=== PATIENT | male | born 1965 | race Caucasian/White ===

== ENCOUNTER 2019-02-20 08:39 | Outpatient (REF) | payer BC, SELFPAY ==
[2019-02-20 13:00] LABS: ALT 47 U/L (16-63); AST 21 U/L (15-37); Albumin 3.8 g/dL (3.4-5.0); Alkaline Phosphatase 111 U/L (46-116); BUN 22 mg/dL (7-18); Bilirubin, Total 0.4 mg/dL (0.2-1.0); CREATININE 0.84 mg/dL (0.70-1.30); Calcium 8.7 mg/dL (8.5-10.1); Chloride 102 mmol/L (98-107); Cholesterol 244 mg/dL (50-200); Glucose 145 mg/dL (70-100); HDL Cholesterol 36 mg/dL (40-60); Potassium 4.6 mmol/L (3.5-5.1); Sodium 137 mmol/L (136-145); Total Protein 7.2 g/dL (6.4-8.2); Triglyceride 595 mg/dL (30-150)
[2019-02-20 13:19] LABS: LDL CHOLESTEROL 95 mg/dL (<100)
== END 2019-02-20 08:59 ==
LOC: NCHCN 08:39
PROVIDERS: PCP Nurse Practitioner Family; Visit Provider Nurse Practitioner Family
DX: Z00.00 Encounter for general adult medical examination without abnormal findings (principal); K76.0 Fatty (change of) liver, not elsewhere classified
CPT/HCPCS: 80053; 80061; 83721

== ENCOUNTER 2019-07-07 08:54 | Outpatient (REF) | payer BC, SELFPAY ==
[2019-07-07 13:37] LABS: Calculated LDL 122 mg/dL (<100); Cholesterol 235 mg/dL (<200); HDL Cholesterol 45 mg/dL (40-60); Triglyceride 341 mg/dL (<150)
== END 2019-07-07 09:14 ==
LOC: NCHCN 08:54
PROVIDERS: PCP Nurse Practitioner Family; Visit Provider Nurse Practitioner
DX: E78.5 Hyperlipidemia, unspecified (principal)
CPT/HCPCS: 80061

== ENCOUNTER 2020-06-22 09:28 | Emergency (ER) | payer BC, SELFPAY ==
[2020-06-22 09:34] VITALS: BP 145/96; PULSE 89; RESP 16; TEMP 36.6; O2SAT 99
--- NOTE | 2020-06-22 09:52 | DI.CT_ITS ---
EXAM: CT ABDOMEN PELVIS W CLINICAL HISTORY: lower abdominal pain. TECHNIQUE: Imaging Protocol: Axial computed tomography images with coronal and sagittal reformatted images were created and reviewed CONTRAST MATERIAL: Intravenous: Omnipaque 100cc Oral: None COMPARISON: CT ABD PELVIS WITH CONTRAST from 09/04/2011 FINDINGS: VISUALIZED LUNG BASES: No nodules nor pleural effusions evident. ABDOMEN: There is no ascites. LIVER: There are no obvious focal hepatic lesions evident . GALLBLADDER/BILIARY: No obvious gallbladder pathology. CBD is not dilated. PANCREAS: No evidence of pancreatic mass nor dilatation of the pancreatic duct. SPLEEN: Spleen is not enlarged. No obvious intrasplenic lesions. Splenic and portal veins are paten t. ADRENALS: There is a small nodule in the right adrenal gland which measures 11 x 12 millimeters. Carlton osite-left adrenal gland is unremarkable. KIDNEYS:There is a small cyst in the superior pole of the left kidney which measures 1.5 x 1.4 cm. N o solid renal masses seen. No calculi nor hydronephrosis. No solid renal masses. No calculi nor hy dronephrosis.. ABDOMINAL AORTA: Abdominal aorta is not enlarged and there is no ttahklwrlxikcii-cnux-jzmykn adenopat hy. ABDOMINAL WALL/GI: No evidence of significant anterior abdominal wall hernia. No bowel obstruction. PELVIS: GI: No evidence of appendicitis.There is mild diffuse thickening of the sigmoid wall noted. No evide nce of acute diverticulitis. LYMPH NODES: There is no intrapelvic nor inguinal adenopathy. REPRODUCTIVE: Prostate size upper normal URINARY BLADDER: No calculi nor obvious masses evident OSSEOUS: No significant osseous lesions. IMPRESSION: 1. Solitary small benign cyst in the left kidney noted. This has slightly increased in size from 201 2. There are no other significant focal renal findings. No hydronephrosis. 2. 11 x 12 millimeter nodule in the right adrenal gland incidentally noted. This is probably a benig n adenoma. Opposite-left adrenal gland is unremarkable. 3. Some diffuse thickening of the sigmoid wall is noted. No evidence of obvious acute diverticulitis . There is no appendicitis. 4. There is no ascites. RADIATION DOSE DELIVERED: 973.11mGy.cm Total DLP DATA REPOSITORY: All CT scans at this facility are submitted to the National Radiology Data Registry (NRDR) Dose Index Registry (DIR) with the [employer] (ACR). RADIATION OPTIMIZATION: All CT scans at this facility use at least one of these dose optimization te chniques: automated exposure control; mA and/or kV adjustment per patient size (includes targeted exa ms where dose is matched to clinical indication); or iterative reconstruction.
--- NOTE | 2020-06-22 09:54 | ED.GENADUL_ITS ---
Discharge Plan Disposition Patient Disposition: HOME Condition: Good Discharge Details Clinical Impression: Abdominal pain Primary Care Provider: Rianna Finley ED Provider: Danelle Morgan Home Meds and New Rx's Prescriptions: No Action No Known Home Meds RF: 0 Discharge Instructions Instructions: Abdominal Pain (ED) Additional Instructions: Follow-up with your primary care physician in 24 to 48 hours for reevaluation You may continue on your Metamucil Clear liquid diet recommended There is possible evidence of colitis, should he have persistent pain, I do recommend colonoscopy at the discretion of your provider You also have a nodule in your adrenal gland and on your kidney, I recommend following up with your doctor regarding these findings Ibuprofen and Tylenol as needed for discomfort Recheck with your primary care physician regarding your blood pressure and return earlier should you have fever, chills, worsening pain, or with any new or progressing symptoms Medical Decision Making CT showed evidence of some sigmoid colon thickening, patient's not having diarrhea although she has taken numerous laxatives but I suspect this is contributing to the abnormal CT read He is given referral for surgery we will follow up with his primary care physician in 24 to 48 hours and consume clear liquid diet for 48 hours Instructed to follow-up with his doctor regarding the kidney cyst and adrenal cyst No abdominal tenderness on reevaluation Diagnostic labs do not show significant pathology, mild leukocytosis Low threshold to return with no worsening complaints Discharged home in stable condition with stable vitals HPI This 54-year-old gentleman who is otherwise healthy presents with abdominal pain for the past 24 hours. He states he drove to [place] last week and drove back returning home yesterday. He states he did move his bowels and took suppositories and actually had numerous bowel movements overnight with mild improvement in symptoms. He states that that when he stands now he has dramatic worsening pain. He denies fever or chills. He denies prior history of similar pain in the past. He denies nausea or vomiting. He denies blood in stool. He denies cough, chest pain, shortness of breath, or any additional complaints at this time. Denies dysuria or frequency. General Date/Time Provider Initiated Documentation: 06/22/20 09:35 . Related Data Home Medications Medication Instructions Recorded Confirmed Unknown [No Known Home Meds] 07/29/16 07/29/16 Allergies Allergy/AdvReac Type Severity Reaction Status Date / Time amoxicillin Allergy Intermediate hives with Unverified 07/29/16 21:44 rash Penicillins Allergy Unknown pt unsure Unverified 07/29/16 21:44 of allergy General Stated Complaint: Abd Prob LIO: 3 Review of Systems Narrative: Review of systems negative x7 aside from where indicated in HPI, specifically narrow diarrhea, nausea, vomiting, dysuria PFSH Social History Smoking/Tobacco Use Status: Former Tobacco Use Smoking risk assessment performed?: Yes Alcohol Intake: current Alcohol Intake frequency: holidays/special occasions only Drug use: Never Do you feel safe at home: Yes Do you feel safe in your relationship?: Yes Exam Const General: healthy appearing Chest Chest: normal inspection of the chest Resp Effort & Inspection: normal respiratory effort Auscultation: clear to auscultation bilaterally Cardio Rate: regular rate Rhythm: regular rhythm GI Inspection: normal to inspection Other: No rebound or guarding, mild tenderness with palpation in bilateral lower quadrants Skin General skin exam: no rashes or lesions noted Neuro General: patient alert Course Vital Signs Vital signs: Vital Signs Temperature 36.6 C 06/22/20 09:34 Pulse 89 06/22/20 09:34 Respiratory Rate 16 06/22/20 09:34 Blood Pressure 145/96 H 06/22/20 09:34 Pulse Oximetry 99 06/22/20 09:34 Temperature 36.6 C 06/22/20 09:34 Temperature Source Skin 06/22/20 09:34 Pulse 89 06/22/20 09:34 Respiratory Rate 16 06/22/20 09:34 Respiratory Effort 06/22/20 09:38 Blood Pressure 145/96 H 06/22/20 09:34 Blood Pressure Position Sitting 06/22/20 09:34 Pulse Oximetry 99 06/22/20 09:34 Oxygen Delivery Method Room Air 06/22/20 09:34 Oxygen Flow Rate 0 06/22/20 09:34 Pain Level 8 06/22/20 09:34 Comment 06/22/20 09:34
[2020-06-22 10:12] LABS: Abs Immature Grans 0.05 10^3/uL (0.0-0.06); Absolute Basophil Count 0.07 10^3/uL (0.0-0.2); Absolute Eosinophil Count 0.17 10^3/uL (0.0-0.7); Absolute Lymphocyte Count 1.66 10^3/uL (1.2-3.4); Absolute Monocyte Count 0.88 10^3/uL (0.1-0.8); Basophils % 0.6; Eosinophils % 1.5; HCT 48.5 % (40.0-50.0); HGB 16.7 g/dL (13.5-17.5); Immature Grans % 0.4; Lymphocytes % 14.6; MCH 30.1 pg (27.0-33.0); MCHC 34.4 % (32.0-36.0); MCV 87.5 fL (80-95); MPV 10.9 fL (8.0-11.0); Monocytes % 7.7; Neutrophils % 75.2; Nucleated RBC 0 %; Platelet Count 258 10^3/uL (130-400); RBC 5.54 10^6/uL (4.36-5.78); RDW 11.7 % (11.8-14.1); RDW-SD 37.2 fL; WBC 11.37 10^3/uL (4.4-10.8)
[2020-06-22 10:13] LABS: Absolute Neutrophil Count 8.55 10^3/uL (1.2-6.7)
[2020-06-22 10:24] LABS: Lipase 60 U/L (73-393)
[2020-06-22 10:31] LABS: ALT 33 U/L (16-63); AST 10 U/L (15-37); Albumin 3.5 g/dL (3.4-5.0); Alkaline Phosphatase 107 U/L (46-116); Anion Gap 11.1 mmol/L (3-11); BUN 16 mg/dL (7-18); Bilirubin, Total 0.6 mg/dL (0.2-1.0); CO2 24.9 mmol/L (21.0-32.0); CREATININE 0.8 mg/dL (0.70-1.30); Calcium 9.1 mg/dL (8.5-10.1); Chloride 102 mmol/L (98-107); Glucose 134 mg/dL (74-106); Sodium 138 mmol/L (136-145); Total Protein 7.8 g/dL (6.4-8.2)
[2020-06-22 10:41] LABS: Bilirubin Negative (Negative); Blood Negative (Negative); Clarity Clear (Clear); Glucose Negative (Negative); Ketones Negative (Negative); Leukocyte Esterase Negative (Negative); Nitrite Negative (Negative); Specific Gravity >= 1.030 (1.005-1.025); Urobilinogen 0.2 EU/dL (Up TO 0.2); pH 5.5 (5-8)
[2020-06-22] MEDS: Omnipaque 350 MG/ML 100 ML BTL IV (10:54)
[2020-06-22 11:56] VITALS: BP 132/82; PULSE 81; RESP 16; TEMP 36.6; O2SAT 98
== END 2020-06-22 11:58 | disposition home or self-care (01) ==
PROVIDERS: Emergency Provider Physician Assistant; PCP Nurse Practitioner Family
DX: R10.9 Unspecified abdominal pain (principal); N28.1 Cyst of kidney, acquired; E27.8 Other specified disorders of adrenal gland
CPT/HCPCS: 80053; 83690; 99285; 74177; 81003; 85025; 99283; J3490

== ENCOUNTER 2020-07-04 18:46 | Outpatient (REF) | payer BC, SELFPAY ==
[2020-07-04 16:19] LABS: Hemoglobin A1C 6.3 % (<5.7)
[2020-07-04 16:22] LABS: Calculated LDL 138 mg/dL (<100); Cholesterol 232 mg/dL (<200); HDL Cholesterol 44 mg/dL (40-60); Triglyceride 253 mg/dL (<150)
== END 2020-07-04 18:47 | disposition home or self-care (01) ==
LOC: NCHCN 18:46
PROVIDERS: PCP Nurse Practitioner Family; Visit Provider Nurse Practitioner
DX: E78.5 Hyperlipidemia, unspecified (principal); R73.03 Prediabetes; E55.9 Vitamin D deficiency, unspecified
CPT/HCPCS: 80061; 82306; 83036

== ENCOUNTER 2020-07-06 01:25 | Outpatient (CLI) | payer BC, SELFPAY ==
--- NOTE | 2020-07-06 | DI.MRI_ITS ---
EXAM: MR LUMBAR SPINE WO CLINICAL HISTORY: BACK PAIN WITH RADICULOPATHY, M54.16. TECHNIQUE: Multiplanar multisequence MRI of the Lumbar spine was performed. COMPARISON: No exams were available for comparison FINDINGS: Bones: The last intervertebral disc space is designated the L5/S1 level for the numbering purpose of this examination. The vertebral body heights are well maintained. Alignment is satisfactory. Degene rative endplate signal changes are seen at L3-4, L4-L5 and L5-S1. Cord: The conus tip ends at the L1 level. It is of normal size and signal intensity. T12-L1: No disc herniations or bulges are present. No central spinal canal or neural foraminal stenos is. L1-2: No disc herniations or bulges are present. No central spinal canal or neural foraminal stenosis . L2-3: No disc herniations or bulges are present. No central spinal canal or neural foraminal stenosis . L3-4: There is a mild diffuse disc bulge. No significant central spinal canal stenosis is seen. The re is mild bilateral neural foraminal narrowing. L4-5: There is a diffuse disc bulge. There does appear to be a small disc herniation into the right neural foramen causing marked right neural foraminal stenosis. No significant central spinal canal s tenosis is seen. Mild narrowing of the left neural foramen is noted. L5-S1: There is a mild diffuse disc bulge. No significant central spinal canal stenosis. Mild hyper trophic changes are seen at the facet joints. Mild to moderate bilateral neural foraminal stenosis i s present. Soft tissues: The visualized SI joints and sacrum are well maintained. The paraspinal soft tissues ar e unremarkable. IMPRESSION: 1. Multilevel degenerative changes in the lumbar spine resulting in multilevel neural foraminal steno sis as described above. 2. Findings suggestive of a right L4-5 neural foraminal disc herniation causing right neural foramina l stenosis. DATA REPOSITORY:
== END 2020-07-06 01:45 ==
PROVIDERS: PCP Nurse Practitioner Family; Visit Provider Nurse Practitioner
DX: M48.061 Spinal stenosis, lumbar region without neurogenic claudication (principal); M54.16 Radiculopathy, lumbar region
CPT/HCPCS: 72148

== ENCOUNTER 2020-09-13 07:56 | Outpatient (CLI) | payer BC, SELFPAY ==
--- NOTE | 2020-09-13 06:00 | DI.RAD_ITS ---
Exam(s) XR PAIN CLINIC LUMBAR SP 2V EXAM: XR PAIN CLINIC LUMBAR SP 2V CLINICAL HISTORY: DX:lumbar radiculopathy TECHNIQUE: 2D and realtime digital imaging was performed. COMPARISON: No exams were available for comparison FINDINGS: C-arm fluoroscopy was utilized by Dr. Peter during lumbar epidural steroid injection. Hard copy shows m idline injection at the L4-5 level. IMPRESSION: RADIATION DOSE DELIVERED: roman Ramos= 4.79 mGy
[2020-09-13 08:03] VITALS: BP 150/83; PULSE 84; RESP 18; TEMP 36.7; O2SAT 99
[2020-09-13 08:35] VITALS: BP 146/97; PULSE 83; RESP 17; O2SAT 100
[2020-09-13] MEDS: methylPREDNISolone ACETATE 80 MG/ML VIAL IJ (08:44)
[2020-09-13] MEDS: Omnipaque 240 MG/ML 50 ML BTL IJ (08:44)
--- NOTE | 2020-09-13 08:44 | PDOC.PAIN ---
Pain Clinic Procedure Note Procedure Note Procedure Note: LUMBAR INTERLAMINAR EPIDURAL STERIOID INJECTION PROCEDURE NOTE ISAIAS HELLER has been referred to the [facility] for a lumbar epidural steroid injection by Ms Alexandria Amaya APRN. Patient has back and radiating right leg pain. MRI L spine reviewed which shows herniated disc causing right L4-5 foraminal stenosis. Pre-operative diagnosis: lumbar radiculopathy Post-operative diagnosis: same as above The patient complains of low back pain with pain radiating down the right leg. ISAIAS was greeted by the nurse who verified patients name and . The patient was then taken to the fluoroscopy suite. ISAIAS was interviewed and the medical record reviewed. There were no medical, pharmacologic, radiographic, or other structural contraindications to attempting fluoroscopically guided lumbar epidural steroid injection. Risks and potential side effects, as well as potential benefits of the procedure were reviewed with Mr Heller. His voiced concerns were addressed. After I was assured that informed consent was obtained, the patient consent form was signed. Standard time-out procedure was performed. ISAIAS was placed in the prone position on the fluoroscopy table and automated blood pressure cuff and pulse oximeter applied. The skin entry point for entering/approaching the L4-5 epidural space for the lumbar epidural steroid injection was marked. Following thorough chlorhexadine preparation of the skin and draping and 1% lidocaine infiltration of the skin entry point and subcutaneous tissues, an 18 gauge Touhy needle was placed and advanced under fluoroscopic guidance and with loss of resistance technique into the L4-5 epidural space. Needle tip placement and depth were aided and confirmed by fluoroscopy. There was no paresthesia or return of blood or CSF through the needle. 1.5 cc's of Omnipaque 240 was injected (48 cc's was wasted) with clear epidural spread confirmed with fluoroscopy. 80 mg of Depomedrol (80 mg/cc) was injected. This was followed by 1 cc of preservative-free 1% lidocaine and 1cc of preservative free normal saline to flush the steroid out of the needle. There was not any unusual discomfort expressed by ISAIAS . (48 cc of Omnipaque and 5 mg of Dexamethasone was wasted) ISAIAS's vital signs were stable throughout the procedure and were as recorded in nursing records. Follow up plans and appointments were discussed with ISAIAS Post procedure instruction was given as documented in nursing records and having met discharge criteria he was discharged from the [facility]. Comments: If this procedure is successful in helping with pain and improving His function, it can be completed a maximum of 3 times every 12 months. if this fails to improve his symptoms, would consider right L4 TFESI. Pre-procedure VAS pain level 5 out of 10, post-procedure remains the same at 5 out of 10. I personally performed this entire procedure. Joseph Peter MD ABPN-subspecialty board certification in Pain Medicine Attending Physician - Pain Management
== END 2020-09-13 07:57 | disposition home or self-care (01) ==
LOC: PC 07:57
PROVIDERS: PCP Nurse Practitioner Family; Visit Provider Internal Medicine
DX: M54.16 Radiculopathy, lumbar region (principal)
CPT/HCPCS: 62323; 72100; J1040; Q9967

== ENCOUNTER 2020-12-07 20:27 | Outpatient (REF) | payer BC, SELFPAY | END 2020-12-07 20:28 | disposition home or self-care (01) | LOC: LBN 20:27 | PROVIDERS: PCP Nurse Practitioner Family; Visit Provider Physician Assistant Medical | DX: R31.9 Hematuria, unspecified (principal) | CPT/HCPCS: 87077; 87086; 87186 ==

== ENCOUNTER 2020-12-28 08:36 | Outpatient (REF) | payer BC, SELFPAY ==
[2020-12-28 14:03] LABS: Calculated LDL 78 mg/dL (<100); Cholesterol 148 mg/dL (<200); HDL Cholesterol 44 mg/dL (40-60); Triglyceride 131 mg/dL (<150)
== END 2020-12-28 08:37 | disposition home or self-care (01) ==
LOC: LBN 08:36
PROVIDERS: PCP Nurse Practitioner Family; Visit Provider Nurse Practitioner
DX: E78.5 Hyperlipidemia, unspecified (principal)
CPT/HCPCS: 80061

== ENCOUNTER 2021-03-29 09:11 | Outpatient (REF) | payer BC, SELFPAY ==
[2021-03-29 19:26] LABS: Hemoglobin A1C 6.4 % (<5.7)
== END 2021-03-29 09:12 | disposition home or self-care (01) ==
LOC: NCHCN 09:11
PROVIDERS: PCP Nurse Practitioner Family; Visit Provider Nurse Practitioner
DX: E11.9 Type 2 diabetes mellitus without complications (principal)
CPT/HCPCS: 83036

== ENCOUNTER 2021-08-15 11:07 | Outpatient (REF) | payer BC, SELFPAY ==
[2021-08-15 16:13] LABS: Hemoglobin A1C 6.3 % (<5.7)
[2021-08-15 16:24] LABS: ALT 45 U/L (16-63); AST 18 U/L (15-37); Albumin 3.9 g/dL (3.4-5.0); Alkaline Phosphatase 107 U/L (46-116); Anion Gap 9.6 mmol/L (3-11); BUN 22 mg/dL (7-18); Bilirubin, Total 0.4 mg/dL (0.2-1.0); CO2 25.4 mmol/L (21.0-32.0); CREATININE 0.7 mg/dL (0.70-1.30); Calcium 9.1 mg/dL (8.5-10.1); Chloride 103 mmol/L (98-107); Glucose 127 mg/dL (74-106); Potassium 4.4 mmol/L (3.5-5.1); Sodium 138 mmol/L (136-145); Total Protein 7.2 g/dL (6.4-8.2)
== END 2021-08-15 11:08 | disposition home or self-care (01) ==
LOC: NCHCN 11:07
PROVIDERS: PCP Nurse Practitioner Family; Visit Provider Nurse Practitioner Family
DX: Z00.00 Encounter for general adult medical examination without abnormal findings (principal); E11.9 Type 2 diabetes mellitus without complications; E78.5 Hyperlipidemia, unspecified
CPT/HCPCS: 80053; 83036

== ENCOUNTER 2022-03-14 15:44 | Outpatient (REF) | payer BC, SELFPAY ==
[2022-03-14 16:04] LABS: Calculated LDL 57 mg/dL (<100); Cholesterol 172 mg/dL (<200); HDL Cholesterol 46 mg/dL (40-60); Triglyceride 348 mg/dL (<150)
== END 2022-03-14 15:45 | disposition home or self-care (01) ==
LOC: NCHCN 15:44
PROVIDERS: PCP Nurse Practitioner Family; Visit Provider Nurse Practitioner Family
DX: E11.9 Type 2 diabetes mellitus without complications (principal); E78.5 Hyperlipidemia, unspecified
CPT/HCPCS: 80061

== ENCOUNTER 2023-04-17 16:42 | Outpatient (REF) | payer BC, SELFPAY ==
[2023-04-17 20:21] LABS: ALT 50 U/L (16-63); AST 22 U/L (15-37); Albumin 3.9 g/dL (3.4-5.0); Alkaline Phosphatase 105 U/L (46-116); BUN 21 mg/dL (7-18); Bilirubin, Total 0.3 mg/dL (0.2-1.0); CREATININE 0.9 mg/dL (0.70-1.30); Calcium 9.7 mg/dL (8.5-10.1); Chloride 100 mmol/L (98-107); Estimated GFR 100.24 (mL/min/1.73m2); Glucose 102 mg/dL (74-106); Potassium 4.2 mmol/L (3.5-5.1); Sodium 138 mmol/L (136-145); Total Protein 7.4 g/dL (6.4-8.2)
[2023-04-17 20:31] LABS: Hemoglobin A1C 6.7 % (<5.7)
[2023-04-18 21:05] LABS: PSA, Diagnostic 0.3 ng/mL (<=3.5)
== END 2023-04-17 16:43 | disposition home or self-care (01) ==
LOC: NCHCN 16:42
PROVIDERS: PCP Nurse Practitioner Family; Visit Provider Nurse Practitioner Family
DX: E11.9 Type 2 diabetes mellitus without complications (principal)
CPT/HCPCS: 80053; 83036; 84153

== ENCOUNTER → 2023-05-21 03:05 | Outpatient (CLI) | payer BC, SELFPAY ==
--- NOTE | 2023-05-21 12:40 | DI.RAD_ITS ---
Exam(s) XR KNEE RT 3V AP,LAT,RENE EXAM: XR KNEE RT 3V AP,LAT,RENE CLINICAL HISTORY: BILAT OA KNEES, M17.0. TECHNIQUE: 2D digital imaging was performed. Three views. COMPARISON: CR XR KNEE LT 3V AP,LAT,RENE from 05/21/2023 FINDINGS: BONES: No acute fracture is present. No bony destructive lesion is seen. Large cyst lateral femoral c ondyle. Small subchondral cysts at articular aspect of patella. JOINTS: Moderate narrowing of the medial femoral tibial joint space. Periarticular spurring. Small subchondral cysts. Chondrocalcinosis. No joint effusion is seen. Mild spurring at the patella. SOFT TISSUE: Normal. IMPRESSION: Moderate degenerative changes of the medial femoral tibial joint. DATA REPOSITORY: RADIATION DOSE DELIVERED:
--- NOTE | 2023-05-21 12:40 | DI.RAD_ITS ---
Exam(s) XR KNEE LT 3V AP,LAT,RENE EXAM: XR KNEE LT 3V AP,LAT,RENE CLINICAL HISTORY: BILAT OA KNEES, M17.0. TECHNIQUE: 2D digital imaging was performed. Three views. COMPARISON: No exams were available for comparison FINDINGS: BONES: No acute fracture is present. Large subchondral cysts noted in medial femoral condyle and med ial tibial plateau. JOINTS: Severe narrowing of medial femoral tibial joint space. Prominent periarticular spurring and sclerosis. Varus angulation with widening of the lateral femoral tibial joint space. Chondrocalcino sis. A joint effusion is seen. SOFT TISSUE: Normal. IMPRESSION: Severe degenerative changes of the medial femoral tibial joint space. DATA REPOSITORY: RADIATION DOSE DELIVERED:
== END ==
PROVIDERS: PCP Nurse Practitioner Family; Visit Provider Nurse Practitioner Family
DX: M17.0 Bilateral primary osteoarthritis of knee (principal)
CPT/HCPCS: 73562

== ENCOUNTER 2023-08-09 14:40 | Outpatient (REF) | payer BC, SELFPAY ==
--- NOTE | 2023-08-09 09:10 | SKI_PTH ---
PATIENT: Carlos Haro LOC: [facility] U#:[id number] AGE/SX: 57/M ROOM: RE08/09/[address]: SEBAS Pedersen : 1965 BED: DIS: 08/09/2023 SPEC #: [id number] RECD: 08/09/23 18:37 STATUS: MARIVEL REJono #: [id number] PRAVEENA: 08/09/23 09:[address]: Neil Cross DEPT: Surgical Specimen RECD BY: Danelle Bolanos ENTERED: 08/09/23 18:37 SP TYPE: GHISLAINE CARLTON DR: SANG SHARIF, PRUDENCIO Tissues: 1 - SKIN BIOPSY(SHAVE/PUNCH) Procedures: SKIN LEVEL 4 Comments: [id number]
== END 2023-08-09 14:41 | disposition home or self-care (01) ==
LOC: LBN 14:40
PROVIDERS: PCP Nurse Practitioner Family; Referring Provider Physician Assistant; Visit Provider Physician Assistant
DX: C44.311 Basal cell carcinoma of skin of nose (principal)
CPT/HCPCS: 88305

== ENCOUNTER 2023-10-04 00:58 | Outpatient (CLI) | payer BC, SELFPAY ==
[2023-10-04 09:20] LABS: HCT 50.3 % (40.0-50.0); HGB 17.2 g/dL (13.5-17.5); MCH 30.4 pg (27.0-33.0); MCHC 34.2 % (32.0-36.0); MCV 89 fL (80-95); MPV 10.8 fL (8.0-11.0); Platelet Count 193 10^3/uL (130-400); RBC 5.66 10^6/uL (4.36-5.78); RDW 12.3 % (11.8-14.1); RDW-SD 40.4 fL; WBC 8.76 10^3/uL (4.4-10.8)
[2023-10-04 09:53] LABS: BUN 18 mg/dL (7-18); CREATININE 0.8 mg/dL (0.70-1.30); Calcium 9.3 mg/dL (8.5-10.1); Chloride 103 mmol/L (98-107); Estimated GFR 103.22 (mL/min/1.73m2); Glucose 130 mg/dL (74-106); Potassium 4.7 mmol/L (3.5-5.1); Sodium 139 mmol/L (136-145)
== END 2023-10-04 00:59 | disposition home or self-care (01) ==
LOC: LBO 00:59
PROVIDERS: PCP Nurse Practitioner Family; Visit Provider Student in an Organized Health Care Education/Training Program
DX: M17.0 Bilateral primary osteoarthritis of knee (principal); Z01.818 Encounter for other preprocedural examination
CPT/HCPCS: 36415; 80048; 85027

== ENCOUNTER 2023-10-04 09:08 | Outpatient (CLI) | payer BC, SELFPAY ==
--- NOTE | 2023-10-04 08:00 | DI.RAD_ITS ---
Exam(s) XR KNEE LT 1V XR STANDING ALIGNMENT XR KNEE RT 1V EXAM: XR STANDING ALIGNMENT CLINICAL HISTORY: PRE OP BILAT TKR. TECHNIQUE: 2D digital imaging was performed. Standing AP views were performed from the pelvis throu gh the ankles. Lateral views of both knees. COMPARISON: CR XR KNEE LT 3V AP,LAT,RENE from 05/21/2023 CR XR KNEE RT 3V AP,LAT,RENE from 05/21/2023 CR XR KNEE RT 1V from 10/04/2023 CR XR KNEE LT 1V from 10/04/2023 FINDINGS: BONES: No acute fracture is present. Large degenerative subchondral cyst in the proximal tibia again noted. Leg length discrepancy: The left femoral head projects post a 5 millimeter superior to the right. JOINTS: Knees: Severe degenerative changes of the medial femoral tibial joint spaces of both knees. Varus angulation at the right knee. Bilateral joint effusions. The ankle joints are unremarkable. The hip joints are unremarkable. SOFT TISSUE: Normal. IMPRESSION: Advanced degenerative changes of both knees . Mild leg length discrepancy. DATA REPOSITORY: RADIATION DOSE DELIVERED:
== END 2023-10-04 09:09 | disposition home or self-care (01) ==
LOC: DIORS 09:13
PROVIDERS: PCP Nurse Practitioner Family; Visit Provider Physician Assistant
DX: M17.0 Bilateral primary osteoarthritis of knee (principal)
CPT/HCPCS: 73560; 77073

== ENCOUNTER 2023-10-15 11:08 | Observation (INO) | payer BC, SELFPAY ==
[2023-10-15] VITALS (39 sets, daily range): BP systolic 94–160; BP diastolic 55–120; PULSE 66–83; RESP 13–31; TEMP 36.3–36.7; O2SAT 90–100; BMI 29.3
[2023-10-15] MEDS: Acetaminophen 500 MG TAB 1000 MG PO ×2 (11:06→19:38)
[2023-10-15] MEDS: Celecoxib 200 MG CAP 400 MG PO (11:07)
[2023-10-15] MEDS: Gabapentin 300 MG CAP PO ×2 (11:07→19:38)
[2023-10-15] MEDS: Lactated Ringers 1,000 ML 80 ML IV (11:22)
--- NOTE | 2023-10-15 11:43 | W.ANESPRE ---
General Info Date of Service Date Performed: 10/15/23 Height: 6 ft 1 in Weight: 100.87 kg Body Mass Index (BMI): 29.3 Surgical Procedure: Operation Date: 10/15/23 14:50 Proposed Procedure Side Surgeon p Knee Total Arthroplasty Bilateral Bilateral Johnathan Purcell MD Meds Allergies and Home Medications Allergies Allergy/AdvReac Type Severity Reaction Status Date / Time amoxicillin Allergy Intermediate hives with Verified 10/15/23 11:05 rash Penicillins Allergy Unknown pt unsure Verified 10/15/23 11:05 of allergy Home Medication Medication Instructions Recorded empagliflozin 10 mg tablet 10 mg PO DAILY 05/24/23 (Jardiance) rosuvastatin 10 mg tablet 10 mg PO DAILY 05/24/23 ketoconazole 2 % shampoo 1 applic topical DAILY 3 days #120 08/09/23 mL acetaminophen 500 mg tablet 1,000 mg (2 x 500 mg) PO Q8H PRN 10/15/23 pain #90 tabs aspirin 81 mg tablet,delayed 81 mg PO BID 30 days #60 tabs 10/15/23 release celecoxib 200 mg capsule (Celebrex) 200 mg PO BID PRN #60 caps 10/15/23 dexamethasone 4 mg tablet 4 mg PO DAILY #2 tabs 10/15/23 docusate sodium 100 mg capsule 100 mg PO BID #30 caps 10/15/23 (Colace) gabapentin 300 mg capsule 300 mg PO QHS #14 caps 10/15/23 oxycodone 5 mg tablet 5 mg PO Q4H PRN #18 tabs 10/15/23 pantoprazole 40 mg tablet,delayed 40 mg PO DAILY #14 tabs 10/15/23 release Current Visit Medications: Current Medications Generic Name Dose Route Start Last Admin Trade Name Freq PRN Reason Stop Dose Admin Acetaminophen 1,000 mg 10/15/23 06:00 10/15/23 11:06 Acetaminophen 500 Mg Tab PO 10/15/23 23:59 1,000 mg PREOP MONSERRAT Administration Acetaminophen 1,000 mg 10/15/23 14:00 Acetaminophen 500 Mg Tab PO 11/14/23 13:59 TID MONSERRAT Aspirin 81 mg 10/15/23 20:00 Aspirin E.C. 81 Mg Tabec PO 11/14/23 19:59 BID MONSERRAT Celecoxib 400 mg 10/15/23 06:00 06/11/24 11:07 Celecoxib 200 Mg Cap PO 10/15/23 23:59 400 mg PREOP MONSERRAT Administration Celecoxib 200 mg 10/15/23 20:00 Celecoxib 200 Mg Cap PO 11/14/23 19:59 BID MONSERRAT Dexamethasone 4 mg 10/16/23 08:30 Dexamethasone 4 Mg Tab PO 10/17/23 08:31 DAILY MONSERRAT Docusate Sodium 100 mg 10/15/23 11:08 Docusate Sodium 100 Mg Cap PO 11/14/23 11:07 BID PRN PRN Constipation Gabapentin 300 mg 10/15/23 06:00 10/15/23 11:07 Gabapentin 300 Mg Cap PO 10/15/23 23:59 300 mg PREOP MONSERRAT Administration Gabapentin 300 mg 10/15/23 20:00 Gabapentin 300 Mg Cap PO 11/14/23 19:59 HS MONSERRAT Hydromorphone HCl 0.5 mg 10/15/23 11:13 Hydromorphone 2 Mg/Ml Syr IVP 11/14/23 11:12 Q2H PRN PRN Ringer's Solution 1,000 mls @ 80 mls/hr 10/15/23 06:00 10/15/23 11:22 IV 10/15/23 23:59 80 mls/hr INFUSION MONSERRAT Administration Cefazolin Sodium/Dextrose 2 gm in 50 mls @ 100 mls/hr 10/15/23 06:00 Ancef Duplex IVPB 10/15/23 23:59 PREOP MONSERRAT Tranexamic Acid/Sodium Chloride 1,000 mg in 100 mls @ 600 mls/hr 10/15/23 06:00 IVPB 10/15/23 23:59 PREOP MONSERRAT Tranexamic Acid/Sodium Chloride 1,000 mg in 100 mls @ 600 mls/hr 10/15/23 06:00 IVPB 10/15/23 23:59 DIRECTED MONSERRAT Cefazolin Sodium/Dextrose 1 gm in 50 mls @ 100 mls/hr 10/15/23 12:00 Ancef Duplex IVPB 11/14/23 11:59 Q8H MONSERRAT IV Miscellaneous Supplies 1 each 10/15/23 06:00 Iv Access IV 10/15/23 23:59 DIRECTED MONSERRAT Ondansetron HCl 4 mg 10/15/23 11:08 Ondansetron 4 Mg/2 Ml Vial IVP 11/14/23 11:07 Q6H PRN PRN Nausea Oxycodone HCl 0 mg 10/15/23 11:13 Oxycodone 5 Mg Tab PO 11/14/23 11:12 Q3H PRN PRN Pain Pantoprazole Sodium 40 mg 10/16/23 07:30 Pantoprazole 40 Mg Tabcr PO 11/15/23 07:29 DAILY@0730 MONSERRAT Polyethylene Glycol 17 gm 10/15/23 11:08 Polyethylene Glycol 3350 17 Gm Packet PO 11/14/23 11:07 BID PRN PRN Constipation Sodium Chloride 0 ml 10/15/23 06:00 Normal Saline Flush 10 Ml Syr IV 10/15/23 23:59 PRN PRN Sodium Chloride 0 ml 10/15/23 06:00 Normal Saline 10 Ml Vial IJ 10/15/23 23:59 DIRECTED PRN Sterile Water 0 ml 10/15/23 06:00 Water,Injection,Sterile 10 Ml Vial IJ 10/15/23 23:59 DIRECTED PRN PFSH Active Problems Active Problems: Problem Status Onset Code History of basal cell carcinoma Z85.828 History of skin graft Z94.5 Basal cell carcinoma (BCC) of face C44.310 Atypical nevus D22.9 Tinea versicolor B36.0 Osteoarthritis of knees, bilateral M17.0 Medical History Medical History Pain, joint, knee, left Intervertebral disc disorder of lumbar region with myelopathy Elevated blood pressure reading without diagnosis of hypertension Increased frequency of urination Snoring Anesthesia of skin Lumbosacral radiculopathy Blood in urine Steatosis of liver Chronic allergic rhinitis Tobacco dependence in remission Nicotine dependence Disorder of adrenal gland pt. denies Type 2 diabetes mellitus pt. states its prediabetes Dysplastic nevus of skin DJD (degenerative joint disease) Numbness in feet Bilateral Knee pain, left Lyme disease pt. denies Elevated blood pressure reading Hyperlipidemia Rupture of right biceps tendon Dystrophic nail Vitamin D deficiency Low back pain Back pain with radiculopathy Non-alcoholic fatty liver disease Adrenal nodule Surgical History Surgical History History of colonoscopy History of knee surgery Tobacco Smoking/Tobacco Use Status: Former Tobacco Use Alcohol Alcohol Intake: current Alcohol intake frequency: holidays/special occasions only Substance Use Substance use: Never Substance use type: does not use Vital Signs and Lab Results Vital Signs Most Recent Vital Signs in EMR: Most Recent Vital Signs Temp Pulse Resp BP Pulse Ox 36.4 C L 80 16 160/91 H 98 10/15/23 10:58 10/15/23 10:58 10/15/23 10:58 10/15/23 10:58 10/15/23 10:58 Point of Care Results Point of Care Results: Finger Stick Blood Glucose 130 10/15/23 11:09 Lab Results Blood Type / Crossmatch: No Data to Display Complete Blood Count: White Blood Count 8.76 10^3/uL (4.4-10.8) 10/04/23 09:15 Red Blood Count 5.66 10^6/uL (4.36-5.78) 10/04/23 09:15 Hemoglobin 17.2 g/dL (13.5-17.5) 10/04/23 09:15 Hematocrit 50.3 % (40.0-50.0) H 10/04/23 09:15 Platelet Count 193 10^3/uL (130-400) 10/04/23 09:15 Complete Metabolic Panel: Sodium 139 mmol/L (136-145) 10/04/23 09:15 Potassium 4.7 mmol/L (3.5-5.1) 10/04/23 09:15 Chloride 103 mmol/L (98-107) 10/04/23 09:15 Carbon Dioxide 28.0 mmol/L (21.0-32.0) 10/04/23 09:15 BUN 18 mg/dL (7-18) 10/04/23 09:15 Creatinine 0.8 mg/dL (0.70-1.30) 10/04/23 09:15 Est GFR (CKD-EPI 2020) 103.22 (mL/min/1.73m2) 10/04/23 09:15 Calcium 9.3 mg/dL (8.5-10.1) 10/04/23 09:15 Glucose 130 mg/dL (74-106) H 10/04/23 09:15 Hemoglobin A1c 6.7 % (4.5-5.7) H 10/04/23 08:16 Liver Function Panel: No Data to Display Coagulation Panel: No Data to Display Cardiac Panel: No Data to Display Arterial Blood Gas: No Data to Display Venous Blood Gas: No Data to Display Pancreas Panel: No Data to Display Thyroid Panel: No Data to Display Infectious Disease: No Data to Display Blood Cultures: No Data to Display Toxicology Panel: No Data to Display Anesthesia Assessment and Plan Anesthesia History Personal History: No History of Anesthesia Complications Family History: No Family History of Anesthesia Complications Exercise Tolerance Exercise Tolerance: Metabolic Equivalents>4 Pertinent Negatives Pertinent Negatives: No Symptoms of GERD, No Major Cardiovascular Symptoms or Complaints, No Major Pulmonary Symptoms or Complaints and No History of CVA/TIA Cardiac & Pulmonary Exam Cardiac Exam: Normal S1/S2 Heart Sounds Pulmonary Exam: Clear Bilateral Breath Sounds Implantable Cardiac Device Does patient have a Pacemaker or an ICD?: No Airway Exam Known Difficult Airway: No Mallampati Class: 2 Mouth Opening: Normal (> 3cm) Thyromental Distance: Greater than 3 cm Neck Range of Motion: Full ROM Neck Circumference: Normal Teeth Condition: Normal Dentition ASA Classification ASA Score: ASA 2 Emergency Case?: No NPO Status NPO Status: NPO Clears >2 hours, Solids >8 hours Anesthesia Plan Resuscitation Status: Full Code Anesthesia Technique: General Anesthesia Airway Planned: Endotracheal Tube Pain Management: Surgeon and patient request nerve block Monitors Used: Standard Monitors Preoperative Comments:: Hx of lumbosacral radiculopathy, numbness in feet, plan to avoid spinal and do GETA with maynor Adductor Canal Blocks.
--- NOTE | 2023-10-15 13:09 | W.ANESNERVE ---
Nerve Block Single Injection Procedure Date and Time Date Performed: 10/15/23 Procedure Start: 12:49 Location Where Procedure Performed Procedure Location: Day Surgery Unit Reason Performed: Postoperative Analgesia Requesting Provider: Johnathan Purcell Timeout Performed Timeout Performed: Yes Monitoring Used ECG, Blood Pressure, SpO2 and See EMR for corresponding vital signs Sterility Sterility: Hand Hygiene, Surgical Cap, Surgical Mask, Sterile Gloves, Sterile Drape/Sheet and Chlorhexidine Sedation Given During Procedure Sedation Given (Indicate Dose Given): No Sedation given Patient Mental Status Patient Mental Status: Awake Nerve Block 1st Nerve Block: Laterality: Bilateral Block Type: Adductor Canal Ultrasound Image Saved?: Yes Needle / Catheter Used: 100mm SonoPlex II Local Anesthetic Bolus (Indicate Dose Given): Lidocaine used for local infiltration of skin, Injected in 3-5ml increments after negative blood aspiration, Half of Total block solution given into each side and Bupivacaine 0.25% Dose:: 30 ml Additives (Indicate Dose Given): None Ultrasound: Sterile probe cover and gel used Nerve Stimulator: Supplement to Ultrasound use and No twitch or parasthesia noted < 0.5 mA Paresthesia: None Procedure Tolerated: No Complications and Patient tolerated well Procedure Outcome: Successful Performed By: Jessica Morris
[2023-10-15] MEDS: ceFAZolin 2 GM/50 ML BAG IVPB (13:42)
[2023-10-15] MEDS: TRANEXAMIC ACID/SOD. CHL. 1,000 MG/100 ML BAG 600 MG IVPB ×2 (13:54→15:27)
--- NOTE | 2023-10-15 16:43 | ROE_ITS ---
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 Depuy Attune Cementless Cruciate Retaining Femoral Component, Size 8 2. Depuy Attune Cementless Fixed Bearing Tibial Component, Size 7 3. Depuy Attune 8x5 CR/FB Poly 4. Depuy Attune Patellar Component, Size 38 RIGHT: 1. Depuy Attune Cementless Cruciate Retaining Femoral Component, Size 8 2. Depuy Attune Cementless Fixed Bearing Tibial Component, Size 7 3. Depuy Attune 8x5 CR/FB Poly 4. Depuy Attune Patellar Component, Size 38 Indications: I have seen Ron in clinic for symptoms of knee arthritis, confirmed with radiographic findings. He has exhausted nonoperative methods and was having significant limitations in daily function and desired better function and less pain. I discussed the technical details of a knee replacement. I explained the risks of the procedure to include, but not limited to, bleeding, infection, pain, stiffness, fracture, damage to nerves and vessels, damage to muscles and tendons, loosening, need for repeat procedure, blood clot and cardiopulmonary demise. Despite these risks, Ron elected to proceed. Findings: There was significant arthritis throughout both knees. The left knee had a large cyst of the posterior aspect of the medial femur. This was mostly contained except for a very small area in the very posterior aspect of the posterior condyle. There also was a cyst within the central portion of the posterior tibia of the left knee. Both of these were packed with bone graft harvested from the knee cuts, mixed with demineralized bone matrix and bone marrow from the femoral canal. The right knee had a cyst of the posterior medial femur but much smaller and fully contained. This also was debrided and packed with bone graft. Procedure Description: Ron was greeted in the preoperative holding area where the correct side was identified and marked. The consent was reviewed with the patient and signed. The history and physical was updated. All questions were answered. Preoperative medications were administered: Acetaminophen 1000mg, Celebrex 400mg, and Gabapentin 300mg. An adductor canal block was then administered by the anesthesia team in the [facility]. [place] was taken back to the operating room. A general anesthetic was then administered. The patient was placed into the supine position on the operating room table. A nonsterile tourniquet was placed high onto the leg but only used for cementing. Posts were placed for positioning during the procedure. All bony prominences were well padded. Prophylactic antibiotics in the form of Cefazolin were administered. 1g of Tranxemic Acid was given intravenously within 30 minutes of incision. The left leg was then prepped with Chloraprep and draped in a standard fashion with impervious stockinette. A second prep with Chloraprep was performed prior to application of Iodine impregnated skin protection. A timeout to confirm correct identity, side and site, procedure, allergies, anesthesia, and medical concerns was performed. LEFT KNEE: With the knee in some flexion, a midline incision was made overlying the knee. Full thickness skin flaps were raised once the extensor mechanism was encountered. These were raised medially and laterally. Any bleeding was controlled with electrocautery. Once the extensor mechanism was fully exposed, a medial parapatellar arthrotomy was performed in a flexed position. All bleeding from the arthrotomy and the geniculate arteries was coagulated. A medial subperiosteal peel was performed with electrocautery to the midcoronal plane. Due to the significant varus deformity the entire medial tibial plateau was exposed. The fat pad was removed while keeping the patellar tendon protected. The anterior distal femur synovium was removed for later visualization. The ACL and PCL were resected and the anterior horn of the lateral meniscus was transected. The knee was then flexed with the patella everted. Large osteophytes from the tibia were removed. Large osteophytes from the femur were removed. Using a step drill, and based on preoperative templating, the femoral canal was entered. This was done with a step drill without any difficulty. The intramedullary distal femoral cut guide was inserted, set to a 4 degree valgus cut and 9mm cut thickness. The distal femoral cut guide was then held in position and pinned. With the soft tissues protected, the distal cut was performed. This was passed over a few times to ensure a planar cut. I then turned attention to the tibia. The extramedullary guide was placed onto the leg. The distal aspect was slid medial to adjust for position of center of ankle and stay in line with shaft of the tibia. Approximately 5 degrees of posterior slope was kept in the proximal cutting guide. The center of the guide was aligned with the PCL. The stylus was used to assess cut thickness. The medial side, most involved side, was set for a 4mm cut. This was then held in position and pinned into place with 2 additional pins and a cross pin for stability. The medial and lateral collateral ligaments were protected and the cut was performed. With this completed, it was assessed and noted to be of appropriate dimensions. The guide was removed. A spacer block was inserted and the knee was brought into extension. The 5mm spacer block provided full extension, without hyperextension and with stability of both the medial and lateral collateral ligaments was assessed. The pins from the femur and the tibia were then removed. There was a cyst now noted in the posterior aspect of the tibia, more centrally and not involving the rim of the cortex of the proximal tibia. The distal femur was then sized. The anterior stylus was placed onto the lateral ridge of the anterior femur. This indicated a size 8 femur. The external rotation of the guide was adjusted to 5 degrees to match the epicondylar axis, perpendicular to [place]?s line. The 4-in-1 cutting guide was shifted posteriorly 1.5 mm and then placed. This is where the large cyst of the medial finger became obvious. There was thickened congealed type synovial fluid with a significant cystic wall which was removed with a rongeur with a curette. Use a curette to scrape the inside the cyst completely to make sure there is no residual soft tissue. The cyst is mostly in the far posterior aspect of the femur. There was some involvement of the medial wall of the distal?posterior femur just at the edge of where the posterior flange could be residing. The bone that was remaining was extremely strong. All of the bone seem quite dense and thick. After fully evaluating this cystic structure I made the decision to proceed with the cementless knee arthroplasty after bone grafting. On the back table any excess bone was removed from the cuts this was mixed together in a slurry with the blood. The notch-cutting guide was placed. This was pinned to lateralize the femoral component as much as possible while keeping it flush on the cut surface. This was then pinned into position. The notch cut was made. The medial and lateral menisci were removed. A trial femoral component was then inserted, impacted down to the cut surfaces, and the lug holes were drilled. A provisional trial tibial component was placed and the knee was brought through range of motion. There was noted to be excellent extension and flexion. There was no significant instability. The patella was tracking without thumbs. A size 5mm polyethylene component provided the best range of motion and stability with less than 2mm gapping with medial and lateral stress and full extension without significant hyperextension. The tibial cut surface was fully exposed. The tibia was then sized as a 7. The tibia had been previously marked during trialing to correspond to the center of the tibial component to help with rotation. The trial was aligned to this silviano, approximately rotated to the medial 1/3rd of the tibial tubercle. The trial was pinned into place. The tibia was prepared with a reamer and a keel punch and lug holes. Additionally the cyst on the posterior aspect of the tibia was better observed. The cyst contents were removed. The cyst capsule was removed. The cyst wall is roughened. The knee was then brought into extension and the patella was measured as 28mm. Using the patellar clamp and cut guide, this was resected to a flat surface with at least 13mm of thickness remaining. The size 38 patella fit the best. This was oriented and then clamped into position. The lugs were drilled. The trial components were removed. The final components were opened on the back table. The periosteal and capsular tissues, especially posteriorly, around the knee were then systematically injected with a periarticular cocktail consisting of 246mg of Ropivacaine, 0.5mg of Epinephrine, 0.08mg of Clonidine, and 30mg of Ketorolac, diluted to 100cc. On the back table, with the implants opened, the cement was mixed. One batch of medium viscosity cement was prepared with vacuum assistance. After the cement was ready a small amount was placed on the cut surface of the patella and the patellar button was clamped into position and held. During this process I then filled the cyst with the bone graft matrix. This was done the femur and the tibia and this was impacted into position. The trial femur was utilized to make sure that the bone graft did not protrude. Then, the cementless knee components were placed. Starting with the tibial component, the tibia was subluxed anteriorly and the lug holes of the component were lined up. The tibia was then impacted with an impactor and mallet until the tibial component was in contact with the tibia. Then, the femoral component was inserted. The lug holes were aligned and the component was impacted into position. This was done slowly to ensure that the edge of the femoral component did not disrupt or break the cortical rim of the posterior?medial femur. The knee was then irrigated with Surgiphor Betadine solution. This was allowed to sit in the knee for 3 minutes and then it was irrigated out with saline. After the cement had finally cured, approximately 15min, the clamp was removed from the patella and the knee was taken through range of motion. The patella was tracking with a no-thumbs technique. The capsule was then reapproximated with a No. 1 Vicryl at multiple locations. The capsule was finally closed with a No. 2 Stratafix, barbed suture. The second dosing of 1g TXA was started. Deep tissues were then reapproximated with 0 Vicryl and 2-0 Vicryl. The skin was closed with a running 3-0 Monocryl in a subcuticular fashion. RIGHT KNEE: With the knee in some flexion, a midline incision was made overlying the knee. Full thickness skin flaps were raised once the extensor mechanism was encountered. These were raised medially and laterally. Any bleeding was controlled with electrocautery. Once the extensor mechanism was fully exposed, a medial parapatellar arthrotomy was performed in a flexed position. All bleeding from the arthrotomy and the geniculate arteries was coagulated. A medial subperiosteal peel was performed with electrocautery to the midcoronal plane. Due to the significant varus deformity the entire medial tibial plateau was exposed. The fat pad was removed while keeping the patellar tendon protected. The anterior distal femur synovium was removed for later visualization. The ACL and PCL were resected and the anterior horn of the lateral meniscus was transected. The knee was then flexed with the patella everted. Large osteophytes from the tibia were removed. Large osteophytes from the femur were removed. Using a step drill, and based on preoperative templating, the femoral canal was entered. This was done with a step drill without any difficulty. The intramedullary distal femoral cut guide was inserted, set to a 4 degree valgus cut and 9mm cut thickness. The distal femoral cut guide was then held in position and pinned. With the soft tissues protected, the distal cut was performed. This was passed over a few times to ensure a planar cut. I then turned attention to the tibia. The extramedullary guide was placed onto the leg. The distal aspect was slid medial to adjust for position of center of ankle and stay in line with shaft of the tibia. Approximately 5 degrees of posterior slope was kept in the proximal cutting guide. The center of the guide was aligned with the PCL. The stylus was used to assess cut thickness. The medial side, most involved side, was set for a 5mm cut. This was then held in position and pinned into place with 2 additional pins and a cross pin for stability. The medial and lateral collateral ligaments were protected and the cut was performed. With this completed, it was assessed and noted to be of appropriate dimensions. The guide was removed. A spacer block was inserted and the knee was brought into extension. The 5mm spacer block provided full extension, without hyperextension and with stability of both the medial and lateral collateral ligaments was assessed. The pins from the femur and the tibia were then removed. The distal femur was then sized. The anterior stylus was placed onto the lateral ridge of the anterior femur. This indicated a size 8 femur. The external rotation of the guide was adjusted to 3 degrees to match the epicondylar axis, perpendicular to [place]?s line. The 4-in-1 cutting guide was then placed. The posterior medial femur cut was evaluated and appeared of good thickness. The spacer block was inserted underneath the cutting guide and stability was confirmed in 90 degrees of flexion. An melly wing was used to confirm appropriate position of the anterior cut to avoid notching. This cutting guide was ensured to be flush on the cut surface and then pinned into place with headed pins. While protecting the soft tissues, quad tendon, and collateral ligaments, the anterior and posterior cuts were performed with a saw. The central two pins were removed and the posterior and anterior chamfers were cut next. During this process there is also a cystic structure seen about the posterior?medial femur. This is much smaller than on the left side but it still was quite substantial. We went through the posterior aspect of the medial femur to about the level of the lug drill. A small area was opened up with a rongeur so I could remove the contents of the cyst as well as the cyst capsule. This was fully removed. This cystic structure then filled with remnant bone matrix and packed into position. The notch-cutting guide was placed. This was pinned to lateralize the femoral component as much as possible while keeping it flush on the cut surface. This was then pinned into position. A reciprocating saw was used to make the notch cut. A rasp smoothed the cut surfaces. The medial and lateral menisci were removed. A trial femoral component was then inserted, impacted down to the cut surfaces, and the lug holes were drilled. A provisional trial tibial component was placed and the knee was brought through range of motion. There was noted to be excellent extension and flexion. There was no significant instability. The patella was tracking without thumbs. A size 5mm component provided the best range of motion and stability with less than 2mm gapping with medial and lateral stress and full extension without significant hyperextension. The tibial cut surface was fully exposed. The tibia was then sized as a 7. The tibia had been previously marked during trialing to correspond to the center of the tibial component to help with rotation. The trial was aligned to this silviano, approximately rotated to the medial 1/3rd of the tibial tubercle. The trial was pinned into place. The tibia was prepared with a reamer and a keel punch and lug holes. The knee was then brought into extension and the patella was measured as 28mm. Using the patellar clamp and cut guide, this was resected to a flat surface with at least 13mm of thickness remaining. The size 38 patella fit the best. This was oriented and then clamped into position. The lugs were drilled. The trial components were removed. The final components were opened on the back table. The periosteal and capsular tissues, especially posteriorly, around the knee were then systematically injected with a periarticular cocktail consisting of 246mg of Ropivacaine, 0.5mg of Epinephrine, 0.08mg of Clonidine, and 30mg of Ketorolac, diluted to 100cc. On the back table, with the implants opened, the cement was mixed. One batch of high viscosity cement was prepared with vacuum assistance. After the cement was ready a small amount was placed on the cut surface of the patella and the patellar button was clamped into position and held. While the cement was hardening, the cementless knee components were placed. Starting with the tibial component, the tibia was subluxed anteriorly and the lug holes of the component were lined up. The tibia was then impacted with an impactor and mallet until the tibial component was in contact with the tibia. . Then, the femoral component was inserted. The lug holes were aligned and the component was impacted into position. The final polyethylene component was inserted. The knee was irrigated with Surgiphor Betadine solution. This was allowed to sit in the knee for 3 minutes and then it was irrigated out with saline. After the cement had finally cured, approximately 15min, the clamp was removed from the patella and the knee was taken through range of motion. The patella was tracking with a no-thumbs technique. The capsule was then reapproximated with a No. 1 Vicryl at multiple locations. The capsule was finally closed with a No. 2 Stratafix, barbed suture. Deep tissues were then reapproximated with 0 Vicryl and 2-0 Vicryl. The skin was closed with a running 3-0 Monocryl in a subcuticular fashion. Both incisions were then reinforced with skin glue. A Mepilex silver dressing was applied along with a [id number] SARAH wrap to both knees. A CryoCuff was applied. [place] was transferred to the hospital bed without difficulty an suffering no apparent complication. [place] has a good prognosis. Physical therapy will start today and without restrictions, weight-bearing as tolerated. Aspirin 81mg BID will be used for DVT prophylaxis.
--- NOTE | 2023-10-15 16:45 | DI.RAD_ITS ---
Exam(s) XR KNEE LT 2V AP,LAT EXAM: XR KNEE LT 2V AP,LAT CLINICAL HISTORY: s/p cyst grafting and TKA. TECHNIQUE: 2D digital imaging was performed. COMPARISON: CR XR KNEE LT 1V from 10/04/2023 FINDINGS: Two views Postop images reveal satisfactory position alignment of the components of the newly placed left knee prosthesis. No fracture or loosening evident. IMPRESSION: Satisfactory postop appearance. DATA REPOSITORY: RADIATION DOSE DELIVERED:
[2023-10-15] MEDS: fentaNYL 100 MCG/2 ML VIAL IVP ×2 (17:27→17:32)
[2023-10-15] MEDS: Normal Saline 10 ML VIAL IJ (17:52)
[2023-10-15] MEDS: HYDROmorphone 2 MG/ML SYR IVP (17:52)
[2023-10-15] MEDS: ceFAZolin 1 GM/50 ML BAG IVPB (18:32)
[2023-10-15] MEDS: Normal Saline Flush 10 ML SYR IV (18:32)
--- NOTE | 2023-10-15 18:33 | W.ANESPOSTOP ---
Postoperative Evaluation Date, Time and Location Date Performed: 10/15/23 Time Performed: 18:33 Patient Location: Med/Surg Vital Signs Most Recent Imported Vital Signs: Most Recent Vital Signs Temp Pulse Resp BP Pulse Ox 36.5 C 71 16 107/56 L 94 10/15/23 18:00 10/15/23 17:51 10/15/23 18:00 10/15/23 17:51 10/15/23 18:00 Pain Score Most Recent Pain Score: Most Recent Pain Score Pain Level 6 10/15/23 18:00 Assessment Mental Status: Awake (Alert & Oriented to Patient Baseline) Airway and Respiratory Function: Patent airway with normal (patient baseline) respiratory exam Cardiovascular Function: Hemodynamically Stable Hydration Status: Adequately Hydrated Nausea & Vomiting: No Nausea or Vomiting Pain: Pain is Moderate or Severe Postoperative Pain Management: Pain being addressed with medication Peripheral Nerve Block: Regional nerve block not resolved at time of post operative discharge
--- NOTE | 2023-10-15 19:25 | DI.VRAD_ITS ---
PROCEDURE INFORMATION: Exam: XR Left Knee Exam date and time: 10/15/2023 6:57 PM Age: 58 years old Clinical indication: Other: Post op; Prior surgery; Surgery date: Post-operative (0-2 days); Surgery type: S/P cyst grafting and tka TECHNIQUE: Imaging protocol: Radiologic exam of the left knee. Views: 1 or 2 views. COMPARISON: CR XR KNEE LT 1V 10/04/2023 8:46 AM FINDINGS: Bones/joints: Total knee arthroplasty. No gross hardware complication. No evidence of acute fracture or malalignment. Small volume intra-articular air consistent with recent postoperative status. Soft tissues: Mild anterior postoperative soft tissue swelling. No retained bodies. IMPRESSION: Postoperative changes of recent total knee arthroplasty without gross complication. Dictated and Authenticated by: Idris Cabral MD. Ordering:TRAV Mann MD
[2023-10-15] MEDS: oxyCODONE 5 MG TAB PO ×2 (19:37→22:43)
[2023-10-15] MEDS: Aspirin E.C. 81 MG TABEC PO (19:38)
[2023-10-15] MEDS: Celecoxib 200 MG CAP PO (19:38)
[2023-10-16] MEDS: oxyCODONE 5 MG TAB PO ×4 (02:08→13:06)
[2023-10-16] MEDS: ceFAZolin 1 GM/50 ML BAG IVPB ×2 (02:09→10:14)
[2023-10-16 03:07] VITALS: BP 106/65; PULSE 72; RESP 16; TEMP 36.5; O2SAT 94
[2023-10-16] MEDS: Ondansetron 4 MG/2 ML VIAL IVP (03:28)
[2023-10-16 07:21] VITALS: BP 124/74; PULSE 88; RESP 15; TEMP 36.9; O2SAT 95
[2023-10-16] MEDS: Pantoprazole 40 MG TABCR PO (07:35)
[2023-10-16] MEDS: Rosuvastatin 10 MG TAB PO (07:35)
[2023-10-16] MEDS: Celecoxib 200 MG CAP PO (07:35)
[2023-10-16] MEDS: Aspirin E.C. 81 MG TABEC PO (07:35)
[2023-10-16] MEDS: Dexamethasone 4 MG TAB PO (07:35)
[2023-10-16] MEDS: Empaglifozin 10 MG TAB PO (07:36)
[2023-10-16] MEDS: Acetaminophen 500 MG TAB 1000 MG PO ×2 (07:36→13:56)
[2023-10-16] MEDS: Insulin Aspart 300 UNITS/3 ML PEN SC (09:09)
--- NOTE | 2023-10-16 09:12 | NUR.NOTE ---
Pt stood at bedside to use the urinal to void successfully for 300 ml. Pt has stage fright and needs privacy. Nursing Note:
--- NOTE | 2023-10-16 09:30 | PT.INIE ---
PT Notes Visit Reasons: Bilateral knee DJD Physical Therapy Inpatient Initial Evaluation Date: 10/16/2023 Referring Doctor: SEBAS Sykes PT Orders: PT CONSULT: S/p Ortho surgery Precautions: Per Dr. Jazzy SCOTT on BLE with AD. Patient Profile/Admitting Diagnosis: Carlos is a 58-year-old male with degenerative joint disease of bilateral knees and is status post bilateral total knee arthroplasties on postoperative day 1. PMHX: Medical History (Updated 10/04/23 @ 08:13 by Fozia Mcallister) Pain, joint, knee, left Intervertebral disc disorder of lumbar region with myelopathy Elevated blood pressure reading without diagnosis of hypertension Increased frequency of urination Snoring Anesthesia of skin Lumbosacral radiculopathy Blood in urine Steatosis of liver Chronic allergic rhinitis Tobacco dependence in remission Nicotine dependence Disorder of adrenal gland Type 2 diabetes mellitus Dysplastic nevus of skin DJD (degenerative joint disease) Numbness in feet BilateralKnee pain, left Lyme disease Elevated blood pressure reading Hyperlipidemia Rupture of right biceps tendon Dystrophic nail Vitamin D deficiency Low back pain Back pain with radiculopathy Non-alcoholic fatty liver disease Adrenal nodule Surgical History (Updated 10/04/23 @ 08:13 by Fozia Mcallister) History of colonoscopy History of knee surgery Social History/Home Situation: Lives with in a private home with 2 steps to enter with a rail on the left side. Independent with all aspects vitals prior to surgery without an assistive device. 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 Equipment Owned/DME: None Subjective: Reported 5?6/10 pain in bilateral knees with the right knee hurting him more than the left knee. Did not report any nausea, headache, chest pain, and lightheadedness throughout session. Objective: General Observation: Sotero wraps to BLE. Cryocuff to be knee. Mental Status: Alert and oriented as to person, place, time, and purpose. Able to pay attention, focus, and respond appropriately. Pain: 5/10 at rest with increased to 6/10 with movement Vital Signs: Closely monitored by nursing staff ROM: Right Lower Extremity: Hip flexion WFL. Hip abduction WFL. Knee flexion 30 degrees to 75 degrees. Knee extension -30 degrees ankle dorsiflexion WFL. Ankle plantarflexion WFL. Left Lower Extremity: Hip flexion WFL. Hip abduction WFL. Knee flexion 20 degrees to 81 degrees. Knee extension -20 degrees.. Ankle dorsiflexion WFL. Ankle plantarflexion WFL. Strength: Right Lower Extremity: Hip flexors 4-/5. Hip abductors 4-/5. Knee flexors 3-/5. Knee extensors 3-/5. Ankle dorsiflexors 4-/5. Ankle plantarflexors 4-/5. Left Lower Extremity: Hip flexors 4-/5. Hip abductors 4-/5. Knee flexors 3-/5. Knee extensors 3-/5. Ankle dorsiflexors 4-/5. Ankle plantarflexors 4-/5. Sensation: Intact as to pain and light pressure in B LE Bed Mobility/Transfers: Minimal cueing provided for use of B hands as needed for support, movement sequence, AD management, and posture to reduce fall risk and minimize pain report Supine to sit contact-guard assist Sit to stand contact-guard assist using FWW Stand to sit contact-guard assist using FWW Bed to reclining chair contact-guard assist using FWW Reclining chair to bed contact-guard assist using FWW Gait: Facilitated safe and correct performance of level surface ambulation covering a distance of 150 feet +300 feet using front-wheeled walker with step to gait pattern requiring standby assist and minimal verbal cueing for limb advancement, increased knee extension at each knee during mid stance, AD management, and posture to minimize pain report and reduce fall risk. Stairs: Guided patient with safe and correct negotiation of 6 x 4 inch steps and 4 x 6 inch steps while holding onto a rail and using a single-point cane with the other hand requiring contact-guard assist with minimal verbal cueing for correct limb sequence, AD management, posture, increase knee flexion at each ascent. Balance: Static Sitting: Normal Dynamic Sitting: Normal Static Standing: Fair Dynamic Standing: Fair Special Tests: Mobility Limitations Standardized Measure [facility] AM-PAC 6 clicks Basic Mobility Inpatient Short Form: Raw Score: 21 CMS Score: 29% deficit Informed Consent/Education: Patient was instructed in purpose of PT consult and plan of care. Agreeable to proceed with established PT POC to achieve personal goals. Trained patient with correct performance of exercises below to maximize motor control, joint flexibility, soft tissue extensibility of the [] knee musculature: Access Code: [email or web address] URL: [email or web address] Date: 10/15/2022 Prepared by: Violetta Nettles Exercises - Supine Quad Set - 1 x daily - 7 x weekly - 1 sets - 10 reps - 5 hold - Supine Heel Slide - 1 x daily - 7 x weekly - 1 sets - 10 reps - 5 hold - Supine Ankle Pumps - 1 x daily - 7 x weekly - 1 sets - 10 reps - 5 hold - Small Range Straight Leg Raise - 1 x daily - 7 x weekly - 1 sets - 10 reps - 5 hold - Seated March - 1 x daily - 7 x weekly - 1 sets - 10 reps - 5 hold Assessment: Patient requires use of a front wheeled walker for mobility ADL performance to maximize independence and reduce fall risk. Her right more limited than the left due to pain report. Patient presents with clinical signs and symptoms consistent with current/admitting diagnoses that have resulted to mobility limitations, gait instability, generalized weakness, and overall ADL decline as demonstrated by the following impairment level findings: 1. Decreased strength to B knees major muscle groups 2. Impaired sitting/standing balance 3. Impaired activity tolerance 4. Limitation of joint range of motion in B knees 5. Pain at 5-6/10 in B knees with R>>L Impairments are contributing to the following functional limitations: 1. Decline in bed mobility skills 2. Decline in transfer skills 3. Difficulty with ambulation without assistive device and physical assistance 4. Increased completion time for mobility ADL performance Patient is assessed as a 81358 moderate complexity based on the following: History: 58-year-old male with past medical history as indicated above Examination: Demonstrable impairment in strength, balance, and mobility level with underlying impairments and functional limitations as exhibited above as well as deficit score of 29% utilizing the [facility] Mobility Inpatient Short Form Presentation: Evolving Decision Makin moderate complexity Goals: Goals X1 week 1. Supine-Sit independent 2. Sit-Supine independent 3. Sit-Stand independent 4. Stand-Sit independent with FWW 5. Bed-Chair independent with FWW 6. Chair-Bed independent with FWW 7. Independent gait on level surface with use of FWW for at least 300 feet without report of pain nor dyspnea 8. Independent stair negotiation while holding onto 1 rail for at least 2 steps without report of pain nor dyspnea 9. Independent with home exercise program 10. Good static and dynamic standing balance/tolerance Plan of Care/Treatment Plan: 1-2x/day, 7 days/week x 1 week. Plan of care has been reviewed with the WELDING MACHINE OPERATOR providing the service under Physical Therapy direction. Initiate Physical Therapy intervention for pain management as needed, strengthening, bed mobility, transfers, gait, stairs, balance training, and use of assistive device. DISCHARGE RECOMMENDATIONS: Home when medically cleared by orthopedic surgeon. Recommend outpatient PT services in order to optimize functional mobility outcomes and facilitate return to independent community ambulation without an assistive device. TREATMENT CODE/TIME: 9716 2 x 20 minutes for 1 unit, 79979 x 28 minutes for 2 units space (9:30?10:18). Thank you for the opportunity to participate in the care of this patient. Violetta Nettles PT, DPT, CLT [facility] [place], [place]
--- NOTE | 2023-10-16 09:58 | W.PM.PROGNOT ---
Date of Service Date of service: 10/16/23 Time of Service: 09:25 Assessment and Plan Assessment and plan (1) History of total bilateral knee replacement: Status: Acute Assessment and plan: Ron is doing well status post bilateral knee replacements. His pain is controlled. He has ambulated physical therapy. This point there are no signs of complications. He should be able to discharge to home later today. Subjective Subjective Interval history since last seen: Ron reports to be doing well. He did have some nausea yesterday. He has had some pain but this has responded to the oxycodone. He is using both 5 mg and 10 mg strength with good success. He has not gone on the bed yet. He is voiding. Vital signs been stable. No chest pain or shortness of breath. Exam Narrative Exam Narrative: Sitting up in the hospital bed. No acute distress. Alert and orient x 3. Bilateral leg dressings are clean dry and intact. He is able to straight leg raise with minimal lag. He has intact ankle dorsiflexion, plantarflexion, great toe extension, great toe flexion on both sides. Sensation intact to light touch over the deep and superficial peroneal nerve and tibial nerve. Objective Last Vital Signs Temp 36.9 C 10/16/23 07:21 Pulse 88 10/16/23 07:21 Resp 15 10/16/23 07:21 BP 124/74 10/16/23 07:21 Pulse Ox 95 10/16/23 07:21 Objective Narrative Objective Narrative: X-ray of the left knee performed yesterday shows no sign of fracture. The cystic change within the tibia appears to be more dense suggestive of the bone grafting. Time Spent with Patient Time Spent with Patient: 25-34 minutes Time was spent: preparing to see the patient(eg.review tests), indepentently interpreting results and counseling the patient
--- NOTE | 2023-10-16 10:06 | PDOC.CMDIS ---
Date of service: 10/16/23 Time of Service: 10:06 LACE Index Scoring Tool Questions: Length of Stay (in days): 1 Was the patient admitted via the E.D.?: No E.D. Visits: 0 Answers: Total Score: 1 Risk of Readmission: Low Risk Care Management Discharge Plan Reason for Hospitalization: Bilateral TKR Discharge Plan: Carlos is discharged home with outpatient PT services. Pt will follow up with community providers and his discharge plan of care as instructed. Pt is driven home via private vehicle with . Patient/Family Education Needs: Review discharge instructions, limitations, medications and plan to follow up with community providers. Discuss ask me three. Services Needed at Discharge: Outpatient Therapy (PT) SDOH Health Related Social Needs: No Data to Display
[2023-10-16] MEDS: Normal Saline Flush 10 ML SYR IVP (10:14)
[2023-10-16 11:18] VITALS: BP 108/71; PULSE 81; RESP 16; TEMP 36.9; O2SAT 100
--- NOTE | 2023-10-16 12:52 | W.PM.DS.N ---
Date of service: 10/16/23 Time of Service: 12:51 DS: Diagnosis Discharge Diagnosis (1) Osteoarthritis of knees, bilateral: Status: Resolved Discharge Plan Disposition Patient Disposition: Home Condition: Good Discharge Details Reason For Visit: Bilateral knee DJD Admit Date/Time: 10/15/23 11:08 Admit Provider: Johnathan Purcell Attending Provider: Johnathan Purcell Primary Care Provider: SANG SHARIF [facility] Hospital Course: Patient was admitted to the medical/surgical floor following the procedure. The surgery was tolerated well without any notable medical, surgical, or anesthetic complications. Mobilization began postoperatively. He was voiding spontaneously. Vitals were stable. Physical therapy worked with the patient and was cleared for discharge home. No acute medical issues. Pain was controlled on oral regimen. Home Meds and New Rx's Prescriptions: Continued Jardiance 10 mg tablet 10 mg PO DAILY rosuvastatin 10 mg tablet 10 mg PO DAILY Discontinued ibuprofen [Advil] 200 mg tablet 200 mg PO Q6H PRN acetaminophen 500 mg capsule 500 mg PO Q6H PRN Discharge Instructions Additional Instructions: Total Knee Discharge Instructions Activity: The most important activity is to walk and to work on gentle motion (both flexion and extension). You should try to take short walks a few times a day. It is important that when resting you work on keeping the knee straight. Avoid putting a pillow behind the knee as this will encourage flexion. Work on range of motion exercises as provided by Physical Therapy. - Start outpatient physical therapy within 2 weeks. - You should wear the CHARLETTE hose on both legs for 2 weeks. You may remove these at night. You may also use any compression sock in place of the CHARLETTE hose. - Utilize [employer] to review exercises, see videos on exercises and obtain basic information pertaining to your surgery and your recovery. Dressing: Remove the Sotero wrap by 2 days after your surgery and put on the CHARLETTE stocking given to you from the hospital. Keep the surgical dressing (underneath the SOTERO wrap) in place for at least one week. After the first week it may be removed and replaced with light gauze and tape or nothing. The wound and dressing may get wet after 3 days but avoid soaking the dressing or otherwise it will need to be changed. Many people prefer covering the dressing with cling wrap (saran wrap) to minimize it from getting soaked. If it gets wet, just pat dry. If it starts to peel off then it will need to be changed. Medications: - You should take Tylenol and anti-inflammatory Celebrex as your primary pain control medications. If the Celebrex is too expensive or not covered, please call the office for another alternative (Advil/Ibuprofen or Naproxen/Aleve) - You have been prescribed a stronger pain medication Oxycodone for breakthrough pain, take as needed as prescribed. - You have also been prescribed a stomach acid reduction agent Pantoprozole to help reduce stomach acid and reflux. - You have been prescribed Gabapentin to take at night for restlessness and nerve pain. - You will be taking Aspirin 81mg twice a day for DVT prevention unless instructed otherwise. - You have also been prescribed Decadron to take to control post-operative nausea and pain. You will start this tomorrow. - If you have constipation you should take Colace (which has been prescribed) or Miralax (which is available [id number]). It takes most people 3-4 days to have a bowel movement. Follow-up: 2 weeks If you have any acute concerns or questions, please do not hesitate to contact the office at [phone]. You may contact Dr. Purcell with any questions after hours through the hospital at [phone] or on his cell phone at [phone]. Stand Alone Forms: Nursing Discharge Form Referrals: Johnathan Purcell MD [ [facility] STAFF PHYSICIAN] - 10/28/23 9:15 am Activity:: Activity as Tolerated Equipment/Supplies:: Walker Diet:: As Tolerated Discharge Orders Discharge Orders: Discharge Order (Routine); Ordered 10/16/23 Ordered By: Johnathan Purcell Discharge Data Discharge Date/Time-TO BE ENTERED AT DEPARTURE: 10/16/23 15:05 DS: Summary Time Spent with Patient providing and/or coordinating discharge services: Less than 30 minutes Status at Discharge Functional status at discharge: uses cane/walker Overall status at discharge: patient is progressing back to baseline Mental Status: mental status grossly normal Speech and Movement: speech and movement normal Mood: congruent mood Affect: normal affect Quality:SDOH Health Related Social Needs: No Data to Display Exam Psych Mental Status: mental status grossly normal Speech and Movement: speech and movement normal Mood: congruent mood Affect: normal affect DS: Data Vitals/I&O Vitals and I&O: Vital Signs Temperature 97.5 F L 10/15/23 10:58 Pulse 80 10/15/23 10:58 Pulse Rhythm Regular 10/15/23 10:58 Respiratory Rate 16 10/15/23 10:58 Respiratory Depth Normal 10/15/23 10:58 Blood Pressure 160/91 H 10/15/23 10:58 Blood Pressure Mean 133 10/15/23 10:56 Blood Pressure Position Sitting 10/15/23 10:56 Pulse Oximetry 98 10/15/23 10:58 Oxygen Delivery Method Room Air 10/15/23 10:58 Oxygen Flow Rate 0 10/15/23 10:58 Pain Level 0 10/15/23 10:58 Intake & Output 10/14/23 10/14/23 10/15/23 11:59 23:59 11:59 Weight 222 lb 6.084 oz PFSH All Active Problems History of total bilateral knee replacement (Acute 10/15/23) History of basal cell carcinoma (Acute) History of skin graft (Acute) Basal cell carcinoma (BCC) of face (Acute) Removal with skin graft September 2023 [facility] Atypical nevus (Acute) Tinea versicolor (Acute) Medical History Pain, joint, knee, left Intervertebral disc disorder of lumbar region with myelopathy Elevated blood pressure reading without diagnosis of hypertension Increased frequency of urination Snoring Anesthesia of skin Lumbosacral radiculopathy Blood in urine Steatosis of liver Chronic allergic rhinitis Tobacco dependence in remission Nicotine dependence Disorder of adrenal gland pt. denies Type 2 diabetes mellitus pt. states its prediabetes Dysplastic nevus of skin DJD (degenerative joint disease) Numbness in feet Bilateral Knee pain, left Lyme disease pt. denies Elevated blood pressure reading Hyperlipidemia Rupture of right biceps tendon Dystrophic nail Vitamin D deficiency Low back pain Back pain with radiculopathy Non-alcoholic fatty liver disease Adrenal nodule Surgical History History of colonoscopy History of knee surgery Social History Smoking/Tobacco Use Status: Former Tobacco Use Quit Date: 05/06/22 Smoking risk assessment performed?: Yes Alcohol Intake: current Alcohol Intake frequency: holidays/special occasions only Drug use: Never Substance use type: does not use Household members: spouse and children Housing: house Number of Children: 2 current occupation: Construction Do you feel safe at home: Yes Do you feel safe in your relationship?: Yes Time Spent with Patient Time Spent with Patient: <45 minutes Time was spent: preparing to see the patient(eg.review tests), counseling the patient and care coordination
--- NOTE | 2023-10-16 14:55 | PTTR_ITS ---
PT Notes Visit Reasons: Bilateral knee DJD Inpatient Physical Therapy Treatment Note [facility] Date: [10/16/23 SUBJECTIVE: [place] states that he just had pain meds and is a bit loopy. He reports that he is going home as soon as his picks him up. I didn't think I would have this much pain. OBJECTIVE: []? PAIN: B knees VITALS: ? monitored by [facility] [place] Therapeutic Activities (87639e5): Direct one-on-one instruction in dynamic activities to improve functional performance. ? BED MOBILITY/TRANSFERS? Supine-sit: min A with LE ? Sit-supine: SBA? Sit-stand: CGA? Stand-sit: SBA? Provided skilled cues and instruction on performance and technique throughout. GAIT Assistive Device:FWW? Weight bearing: AT Assist: SBA ? Distance:? approx 50'x2 ? Deviation: short stride length. ? Therapeutic Exercises (67046g4): Direct one-on-one instruction in therapeutic exercises to develop strength, endurance, range of motion and flexibility. ? Exercises ?reviewed HEP of AP, QS, SLR, heel slides and seated marching. He was able to demonstrate all ex appropriately. Cryocuff applied to bilateral knees. ASSESSMENT:? tolerated session well despite being groggy. Took him a little longer to process what was being said to him due to pain meds. No LOB noted with amb or transfers. PLAN: d/c home with . Outpatient PT scheduled in 2weeks. TREATMENT CODE/TIME: 25 min [id number], [id number]
== END 2023-10-16 15:05 | disposition home or self-care (01) ==
LOC: SUR 11:51 → MS 18:15
PROVIDERS: Admitting Provider Student in an Organized Health Care Education/Training Program; PCP Nurse Practitioner Family; Visit Provider Student in an Organized Health Care Education/Training Program
PROC: 0SRC0JZ Replacement of Right Knee Joint with Synthetic Substitute, Open Approach (ICD-10-PCS; CPT 27447; principal; 2023-10-15 14:30)
DX: M17.0 Bilateral primary osteoarthritis of knee (principal); M85.662 Other cyst of bone, left lower leg; M85.661 Other cyst of bone, right lower leg; R06.83 Snoring; R20.2 Paresthesia of skin; M51.06 Intervertebral disc disorders with myelopathy, lumbar region; K76.0 Fatty (change of) liver, not elsewhere classified; R73.03 Prediabetes; B36.0 Pityriasis versicolor; E78.5 Hyperlipidemia, unspecified; J30.9 Allergic rhinitis, unspecified; E55.9 Vitamin D deficiency, unspecified
CPT/HCPCS: 27447; 76942; 96365; 96366; 96375; 97110; 97162; 97530; 73560; C1776; G0378; J0665; J0690; J1100; J1170; J1815; J2405; J2704; J3010; J8540

== ENCOUNTER 2023-11-11 12:53 | Outpatient (CLI) | payer BC, SELFPAY ==
--- NOTE | 2023-11-11 09:45 | DI.RAD_ITS ---
Exam(s) XR KNEE LT 1V XR KNEE RT 1V XR STANDING ALIGNMENT EXAM: XR STANDING ALIGNMENT and bilateral knee 1 V CLINICAL HISTORY: F/U BILAT TKAS. TECHNIQUE: 2D digital imaging was performed. Six images were obtained. COMPARISON: CR XR KNEE RT 1V from 10/04/2023 CR XR STANDING ALIGNMENT from 10/04/2023 CR XR KNEE LT 1V from 10/04/2023 FINDINGS: BONES: The hips are well maintained. The patient has bilateral total knee replacements. The orthope dic hardware appears in good position. No suspicious lucencies are seen in or about the orthopedic h ardware to suggest loosening. The ankles are well maintained.There is no significant leg length disc repancy. SOFT TISSUE: There is mild soft tissue swelling around the knee secondary to the recent bilateral kne e replacements. IMPRESSION: Bilateral total knee replacements which appear unremarkable. DATA REPOSITORY: RADIATION DOSE DELIVERED:
== END 2023-11-11 12:54 | disposition home or self-care (01) ==
LOC: DIORS 12:57
PROVIDERS: PCP Nurse Practitioner Family; Visit Provider Student in an Organized Health Care Education/Training Program
DX: M17.11 Unilateral primary osteoarthritis, right knee (principal); M17.12 Unilateral primary osteoarthritis, left knee; Z96.653 Presence of artificial knee joint, bilateral; Z47.1 Aftercare following joint replacement surgery
CPT/HCPCS: 73560; 77073

== ENCOUNTER 2024-05-26 13:11 | Outpatient (REF) | payer BC, SELFPAY ==
[2024-05-26 15:38] LABS: ALT 31 U/L (16-63); AST 25 U/L (15-37); Albumin 3.8 g/dL (3.4-5.0); Alkaline Phosphatase 120 U/L (46-116); Anion Gap 7.9 mmol/L (3-11); BUN 18 mg/dL (7-18); Bilirubin, Total 0.41 mg/dL (0.2-1.0); CO2 26.1 mmol/L (21.0-32.0); CREATININE 0.7 mg/dL (0.70-1.30); Calcium 9.4 mg/dL (8.5-10.1); Calculated LDL 54 mg/dL (<100); Chloride 104 mmol/L (98-107); Cholesterol 149 mg/dL (<200); Estimated GFR 107.47 (mL/min/1.73m2); Glucose 130 mg/dL (74-106); HDL Cholesterol 74 mg/dL (40-60); Potassium 4.6 mmol/L (3.5-5.1); Sodium 138 mmol/L (136-145); Total Protein 7.3 g/dL (6.4-8.2); Triglyceride 106 mg/dL (<150)
[2024-05-26 15:44] LABS: Hemoglobin A1C 6.5 % (<5.7)
== END 2024-05-26 13:12 | disposition home or self-care (01) ==
LOC: NCHCN 13:11
PROVIDERS: PCP Nurse Practitioner Family; Visit Provider Nurse Practitioner Family
DX: E78.5 Hyperlipidemia, unspecified (principal); E11.9 Type 2 diabetes mellitus without complications
CPT/HCPCS: 80053; 80061; 83036

== ENCOUNTER 2024-10-26 09:57 | Outpatient (CLI) | payer BC, SELFPAY ==
--- NOTE | 2024-10-26 09:45 | DI.RAD_ITS ---
Exam(s) XR KNEE LT 2V AP,LAT XR KNEE RT 2V AP,LAT EXAM: XR KNEE LT 2V AP,LAT CLINICAL HISTORY: ANNUAL F/U BILAT TKAS. TECHNIQUE: 2D digital imaging was performed. Two views of both knees COMPARISON: CR XR KNEE RT 1V from 11/11/2023 CR XR STANDING ALIGNMENT from 11/11/2023 CR XR KNEE LT 1V from 11/11/2023 CR XR KNEE RT 2V AP,LAT from 10/26/2024 FINDINGS: BONES: No acute fracture is present. No bony destructive lesion is seen. JOINTS: The there is no change in the alignment of the bilateral total knee prostheses. Small bilateral joint effusions are seen. SOFT TISSUE: Decreased soft tissue swelling. IMPRESSION: Unremarkable bilateral total knee prostheses. DATA REPOSITORY: RADIATION DOSE DELIVERED:
== END 2024-10-26 09:58 | disposition home or self-care (01) ==
LOC: DIORS 09:57
PROVIDERS: PCP Nurse Practitioner Family; Referring Provider Nurse Practitioner Family; Visit Provider Student in an Organized Health Care Education/Training Program
DX: Z96.653 Presence of artificial knee joint, bilateral (principal)
CPT/HCPCS: 73560

== ENCOUNTER 2024-11-25 14:14 | Emergency (ER) | payer BC, SELFPAY ==
[2024-11-25] VITALS (10 sets, daily range): BP systolic 127–164; BP diastolic 80–93; PULSE 75–94; RESP 16–26; TEMP 36.6–36.9; O2SAT 96–99
--- NOTE | 2024-11-25 14:15 | RT.EKG_ITS ---
APPROVED REPORT Exam: Resting ECG Reason for Exam: ChestPain Patient Location: E HR:101 bpm ECG Measurements Heart Rate 101 AXIS TX 160 P 39 QRSd 93 QRS 151 QT 338 T 24 QTc 439 Conclusion Sinus tachycardia. 101 normal axis no stemi
[2024-11-25] MEDS: Aspirin 81 MG CHEW 324 MG CH (14:39)
--- NOTE | 2024-11-25 14:54 | ED.GENADUL_ITS ---
Discharge Plan Disposition Patient Disposition: Home Condition: Stable Discharge Details Clinical Impression: Right-sided chest pain, Acute pain of right shoulder Primary Care Provider: SANG SHARIF ED Provider: Irena John Home Meds and New Rx's Prescriptions: No Action Jardiance 10 mg tablet 10 mg PO DAILY rosuvastatin 10 mg tablet 10 mg PO DAILY Discharge Instructions Instructions: Chest Pain, Adult ED Additional Instructions: You were evaluated today for pain in your right chest and right shoulder. EKG, lab work no focal consolidation, normal heart size, no pulmonary edema or pleural effusion, shoulder x-ray and CT scan were all unremarkable. No signs of pneumonia, blood clot or cardiac problem that may be causing the symptoms. Your pancreas enzyme was slightly above normal and sometimes this can cause radiation of pain into the right shoulder, but if you are not having any nausea or vomiting, abdominal pain or symptoms associated with eating I do not think that this is a lab test to be concerned with. Please continue follow-up with your PCP for any ongoing Discharge Data Discharge Date/Time-TO BE ENTERED AT DEPARTURE: 11/25/24 17:17 HPI General Date/Time Provider Initiated Documentation: 11/25/24 14:30 . Limitations to Documentation: no limitations . Information obtained by: patient . HPI Narrative: 59-year-old gentleman with past medical history of diabetes, former smoker presents for evaluation of right-sided chest pain. He reports 2 days ago he had severe right-sided pain. The pain was worse with deep breath. It had some mild shortness of breath. It radiated up into his right shoulder. Over the last 2 days the pain has moved so that is now localized in the right shoulder. Pain is worse with any movement of his right arm. He denies any worsening shortness of breath, fever chills or cough. He denies any trauma. He denies any prior symptoms like this before. Related Data Home Medications ?Medication ?Instructions ?Recorded ?Confirmed empagliflozin 10 mg tablet 10 mg PO DAILY 05/24/23 (Jardiance) rosuvastatin 10 mg tablet 10 mg PO DAILY 05/24/2311/04 Allergies Allergy/AdvReac Type Severity Reaction Status Date / Time amoxicillin Allergy Intermediate hives with Verified 11/25/24 14:27 rash Penicillins Allergy Unknown pt unsure Verified 11/25/24 14:27 of allergy General Stated Complaint: Chest Pain LIO: 3 Exam Narrative Exam Narrative: Review of Systems: All systems reviewed & are unremarkable except as noted in HPI and below Well-developed, no acute distress NCAT PERRL, normal conjunctiva RRR Unlabored respiratory effort clear bilaterally Nondistended abdomen soft nontender Extremities w/o edema Right shoulder tender with range of motion, no deformity appreciated Course Vital Signs Vital signs: Vital Signs Temperature 36.9 C 11/25/24 14:25 Pulse 94 H 11/25/24 14:25 Respiratory Rate 20 11/25/24 14:25 Blood Pressure 164/93 H 11/25/24 14:25 Pulse Oximetry 96 11/25/24 14:25 Temperature 36.9 C 11/25/24 14:25 Pulse 94 H 11/25/24 14:25 Respiratory Rate 20 11/25/24 14:25 Blood Pressure 164/93 H 11/25/24 14:25 Blood Pressure Position Sitting 11/25/24 14:25 Pulse Oximetry 96 11/25/24 14:25 Oxygen Delivery Method Room Air 11/25/24 14:25 Oxygen Flow Rate 0 11/25/24 14:25 Medical Decision Making Emergent evaluation of right-sided chest and shoulder pain. Initial diff erential includes arthralgia, musculoskeletal pain, pneumonia, pulmonary embolism. Patient is low risk for PE. EKG reviewed and independently interpreted: Sinus tachycardia 101 normal axis no acute ischemic changes. He is also fairly low risk for ACS. He is a former smoker but has not smoked in 2 years. He has some prediabetes that he takes medication for and is on a statin. Blood pressure is slightly elevated today. Plan for labs, serial cardiac enzymes and imaging. Lab work reviewed, no leukocytosis or anemia troponin is not elevated. BNP is not elevated. There is an elevation in his D-dimer, so a CTA was ordered. His lipase is noted to be slightly above baseline, but he is not having any GI symptoms and has a benign abdominal exam. No focal consolidation, normal heart size, no pulmonary edema or pleural effusion and CT imaging were both unremarkable, there is no acute pulmonary embolism. At this time emergent life- threatening conditions have been evaluated. Recommend close monitoring of these ongoing symptoms and follow-up with PCP as needed. Return precautions [facility] All Active Problems (Updated 11/25/24 @ 17:02 by Irena John MD) Acute pain of right shoulder (Acute) Right-sided chest pain (Acute) History of total bilateral knee replacement (Acute 10/15/23) History of basal cell carcinoma (Acute) History of skin graft (Acute) Basal cell carcinoma (BCC) of face (Acute) Removal with skin graft September 2023 [facility] Atypical nevus (Acute) Tinea versicolor (Acute) Medical History Pain, joint, knee, left Intervertebral disc disorder of lumbar region with myelopathy Elevated blood pressure reading without diagnosis of hypertension Increased frequency of urination Snoring Anesthesia of skin Lumbosacral radiculopathy Blood in urine Steatosis of liver Chronic allergic rhinitis Tobacco dependence in remission Nicotine dependence Disorder of adrenal gland pt. denies Type 2 diabetes mellitus pt. states its prediabetes Dysplastic nevus of skin DJD (degenerative joint disease) Numbness in feet Bilateral Knee pain, left Lyme disease pt. denies Elevated blood pressure reading Hyperlipidemia Rupture of right biceps tendon Dystrophic nail Vitamin D deficiency Low back pain Back pain with radiculopathy Non-alcoholic fatty liver disease Adrenal nodule Surgical History History of colonoscopy History of knee surgery Social History Smoking/Tobacco Use Status: Former Tobacco Use Quit Date: 05/06/22 Smoking risk assessment performed?: Yes Alcohol Intake: current Alcohol Intake frequency: holidays/special occasions only Drug use: Never Substance use type: does not use Household members: spouse and children Housing: house Number of Children: 2 current occupation: Construction Do you feel safe at home: Yes Do you feel safe in your relationship?: Yes
[2024-11-25 14:57] LABS: Abs Immature Grans 0.06 10^3/uL (0.0-0.06); HCT 45.0 % (40.0-50.0); HGB 15.5 g/dL (13.5-17.5); Immature Grans % 0.6 %; MCH 29.7 pg (27.0-33.0); MCHC 34.4 % (32.0-36.0); MCV 86 fL (80-95); MPV 10.3 fL (8.0-11.0); Platelet Count 243 10^3/uL (130-400); RBC 5.22 10^6/uL (4.36-5.78); RDW 11.8 % (11.8-14.1); RDW-SD 37.2 fL; WBC 10.77 10^3/uL (4.4-10.8)
[2024-11-25 15:23] LABS: INR 1.0 (0.9-1.1); Prothrombin Time 10.2 sec (9.1-11.1)
--- NOTE | 2024-11-25 15:30 | DI.RAD_ITS ---
Exam(s) XR CHEST 2V PA LATERAL EXAM: XR CHEST 2V PA LATERAL CLINICAL HISTORY: Chest pain TECHNIQUE: 2D digital imaging was performed of the chest. Two images were obtained. PA and lateral views were obtained. COMPARISON: CR CHEST 2 VIEWS PA,LAT from 02/11/2011 FINDINGS: MEDIASTINUM: Normal. HEART: Normal. PULMONARY VASCULATURE: Normal. LUNGS: Clear. PLEURAL SPACE: No pleural effusion or pneumothorax. BONE:Within normal limits for the patient's age. There is an old healed right clavicular fracture deformity. OTHER FINDINGS:Normal. IMPRESSION: No acute pulmonary findings. DATA REPOSITORY: RADIATION DOSE DELIVERED:
--- NOTE | 2024-11-25 15:30 | DI.RAD_ITS ---
Exam(s) XR SHOULDER RT COMPLETE 2+V EXAM: XR SHOULDER RT COMPLETE 2+V CLINICAL HISTORY: shoulder pain. TECHNIQUE: 2D digital imaging was performed of the right shoulder. Five images were obtained. AP, Grashey, Y-view and axillary views were obtained. COMPARISON: CR CHEST 2 VIEWS PA,LAT from 02/11/[address] CHEST LUNG CANCER SCREEN from 09/03/2024 FINDINGS: BONES: No acute fracture is present. No bony destructive lesion is seen. There is again seen an old healed right clavicular fracture deformity. JOINTS: No dislocation present. Mild degenerative changes are seen at the acromioclavicular joint. SOFT TISSUE: Normal. IMPRESSION: No acute abnormality. DATA REPOSITORY: RADIATION DOSE DELIVERED:
[2024-11-25 15:33] LABS: ALT 35 U/L (16-63); AST 17 U/L (15-37); Albumin 3.5 g/dL (3.4-5.0); Alkaline Phosphatase 111 U/L (46-116); Anion Gap 9.4 mmol/L (3-11); BUN 20 mg/dL (7-18); Bilirubin, Total 0.6 mg/dL (0.2-1.0); CO2 27.6 mmol/L (21.0-32.0); Calcium 9.0 mg/dL (8.5-10.1); Chloride 103 mmol/L (98-107); Estimated GFR 106.80 (mL/min/1.73m2); Glucose 198 mg/dL (74-106); Lipase 97 U/L (<78); Magnesium 1.8 mg/dL (1.8-2.4); NT-proBNP 11 pg/mL (<300); Potassium 3.7 mmol/L (3.5-5.1); Sodium 140 mmol/L (136-145); Total Protein 7.4 g/dL (6.4-8.2)
[2024-11-25 15:37] LABS: Troponin I < 4 ng/L (<or=76)
[2024-11-25 15:45] LABS: D-Dimer 968 ng/mlFEU (<500)
--- NOTE | 2024-11-25 15:45 | DI.CT_ITS ---
Exam(s) CT CHEST PE CTA EXAM: CT CHEST PE CTA CLINICAL HISTORY: chest pain, elevated d dimer. TECHNIQUE: Imaging Protocol: Axial CT angiography was performed with multi- slice acquisition and multi-planar reconstructions as well as axial, coronal and sagittal MIP reconstructions. Computer aided detection (CAD) was utilized. CONTRAST MATERIAL: Intravenous: Omnipaque 350 Contrast volume:100 ml COMPARISON: CT CT CHEST LUNG CANCER SCREEN from 09/03/2024 FINDINGS: Pulmonary Arteries: No evidence of filling defect to suggest pulmonary emboli. Mediastinum and Pretty: No dominant adenopathy or fluid collection. Pulmonary parenchyma: Limited evaluation due to expiratory changes and mild respiratory motion. No consolidation or dominant measurable mass. Pleura: No effusion or pneumothorax. Heart: The heart is not dilated. No coronary artery calcifications are seen. Aorta: Thoracic aorta non-dilated. No dissection. Upper abdomen: No acute findings. The liver is enlarged and shows fatty infiltration. Bones: Unremarkable for age. Tubes, Catheters, and Lines: None Soft tissues: Mild bilateral gynecomastia. IMPRESSION: No evidence of pulmonary embolism or other acute abnormality in the chest.. RADIATION DOSE DELIVERED: Total DLP DATA REPOSITORY: All CT scans at this facility are submitted to the National Radiology Data Registry (NRDR) Dose Index Registry (DIR) with the [employer] [place] [employer] ([employer]). RADIATION OPTIMIZATION: All CT scans at this facility use at least one of these dose optimization techniques: automated exposure control; mA and/or kV adjustment per patient size (includes targeted exams where dose is matched to clinical indication); or iterative reconstruction.
[2024-11-25 16:04] LABS: Troponin I 4 ng/L (<or=76)
[2024-11-25] MEDS: Omnipaque 350 MG/ML 100 ML BTL IJ (16:24)
[2024-11-25] MEDS: Normal Saline - Diluent 50 ML VIAL IJ (16:24)
[2024-11-25] MEDS: Ketorolac 15 MG/ML VIAL 10 MG IVP (16:44)
== END 2024-11-25 17:17 | disposition home or self-care (01) ==
PROVIDERS: Emergency Provider Emergency Medicine; PCP Nurse Practitioner Family
DX: R07.9 Chest pain, unspecified (principal); M25.511 Pain in right shoulder; R00.0 Tachycardia, unspecified; E11.9 Type 2 diabetes mellitus without complications; E78.5 Hyperlipidemia, unspecified; Z79.84 Long term (current) use of oral hypoglycemic drugs; Z87.891 Personal history of nicotine dependence
CPT/HCPCS: 36415; 71275; 80053; 83690; 93005; 96374; 99285; 71046; 73030; 83735; 83880; 84484; 85025; 85379; 85610; 93010; 99284; J1885; J3490